=== PATIENT | female | born 1975 | race African-American/Black ===

== ENCOUNTER 2016-10-14 13:42 | Emergency (ER) | payer BC ==
[~2016-10-14 13:42] MED LIST: AMITRIPTYLINE H25 MG PO; BUPROPION XL150 MG PO; DROSPIRENONE-E1 EAC1 PO; PEPCID AC20 M2 PO; ZOFRANODT PO
== END 2016-10-14 15:20 | disposition home or self-care (01) ==
LOC: SED 13:42
DX: H61.21 Impacted cerumen, right ear (principal); J32.9 Chronic sinusitis, unspecified; F41.9 Anxiety disorder, unspecified; F17.210 Nicotine dependence, cigarettes, uncomplicated
CPT/HCPCS: 99282